=== PATIENT | female | born 1985 | race Caucasian/White ===

== ENCOUNTER 2020-12-30 15:59 | Emergency (ER) | payer OTHER ==
[~2020-12-30] VITALS: Ht 165.1 cm; Wt 90.7 kg
[2020-12-30] MEDS ORDERED: MEDROXYPROGESTE10 MG PO (16:12)
[2020-12-30] MEDS ORDERED: LEVSIN0.125 MG SUBLING (16:13)
[2020-12-30] MEDS ORDERED: ZOFRAN4 MG PO (16:14)
[2020-12-30 16:39] LABS: URINE BILIRUBIN NEGATIVE (Negative); URINE BLOOD 2+ (Negative); URINE CLARITY CLEAR; URINE COLOR YELLOW; URINE GLUCOSE-RANDOM NEGATIVE (Negative); URINE KETONES NEGATIVE (Negative); URINE LEUKOCYTES-REFLEX NEGATIVE (Negative); URINE NITRITE-REFLEX NEGATIVE (Negative); URINE PROTEIN NEGATIVE (Negative); URINE SPECIFIC GRAVITY 1.025 (1.005-1.030)
[2020-12-30 16:39] LABS: ABSOLUTE BASOPHILS 0.1 thou/uL (0.0-0.2); ABSOLUTE EOSINOPHILS 0.2 thou/uL (0.0-0.7); ABSOLUTE LYMPHOCYTES 2.1 thou/uL (0.8-5.3); ABSOLUTE MONOCYTES 0.5 thou/uL (0.0-1.2); ABSOLUTE NEUTROPHILS 6.1 thou/uL (1.6-8.1); BASOPHILS 0.9 %; EOSINOPHILS 1.7 %; HEMATOCRIT 43.7 % (37.0-47.0); HEMOGLOBIN 15.4 gm/dL (12.0-15.0); LYMPHOCYTES 23.3 %; MCH 35.2 pg (26.0-34.0); MCHC 35.2 g/dL (28.0-37.0); MCV 100.2 fL (80.0-100.0); MONOCYTES 5.6 %; MPV 6.6 fl. (7.2-11.1); NUCLEATED RBCS 0 /100WBC; PLATELET COUNT* 333 thou/uL (150-400); POLYS 68.5 %; RBC 4.36 mil/uL (4.20-5.00); RDW-CV 12.4 % (10.5-14.5)
[2020-12-30 16:44] LABS: SQUAMOUS 0-3 Few /LPF (0-3)
[2020-12-30 16:47] LABS: CALCIUM 9.2 mg/dL (8.5-10.1); CREATININE 0.9 mg/dL (0.6-1.3); POTASSIUM 3.7 mmol/L (3.5-5.1)
[2020-12-30 16:51] LABS: ALBUMIN 3.4 g/dL (3.4-5.0); TOTAL BILIRUBIN 0.9 mg/dL (<0.1-1.0); TOTAL PROTEIN 6.6 g/dL (6.4-8.2)
[2020-12-30 16:54] LABS: URINE WBC-REFLEX 0-5 Rare /HPF (0-5)
[2020-12-30 16:55] LABS: CASTS None Seen /LPF (None Seen); MUCUS >6 Heavy strn/LPF (None Seen); URINE RBC 0-2 Rare /HPF (0-2)
[2020-12-30 16:56] LABS: CALCIUM OXALATE 4-10 Moderate /LPF (None Seen)
[2020-12-30] MEDS ORDERED: TRAMADOL 50 MG50 MG PO (18:42)
[2020-12-30] MEDS ORDERED: IBUPROFEN 800800 M1 PO (18:42)
[2020-12-30 18:45] VITALS: BP 129/65
== END 2020-12-30 18:45 | disposition home or self-care (01) ==
LOC: M.ERS 15:59
PROVIDERS: Nurse Practitioner Family
DX: N93.9 Abnormal uterine and vaginal bleeding, unspecified (principal); R19.7 Diarrhea, unspecified; Z87.42 Personal history of other diseases of the female genital tract; Z88.5 Allergy status to narcotic agent; Z91.040 Latex allergy status